=== PATIENT | female | born 1995 | race Caucasian/White ===

== ENCOUNTER 2018-08-07 16:44 | Emergency (ER) | payer SELFPAY | END 2018-08-07 17:01 | disposition left against medical advice (07) | LOC: ED 16:44 | DX: Z72.89 Other problems related to lifestyle (principal) ==

== ENCOUNTER 2022-01-30 19:34 | Emergency (ER) | payer SELFPAY ==
[~2022-01-30] VITALS: Wt 69.5 kg
[2022-01-30 20:03] LABS: BASO # 0.02 K/mm3 (0.02-0.10); EOS # 0.14 K/mm3 (0.04-0.40); EOS % 2.1 % (1.0-5.0); HEMATOCRIT 38.8 % (37.0-47.0); HEMOGLOBIN 13.5 g/dL (12.5-16.0); LYMPH# 3.01 K/mm3 (1.50-4.00); MEAN CELL VOLUME 85 fl (78-100); MEAN CORPUSCULAR HEMOGLOBIN 30 pg (27-31); MEAN CORPUSCULAR HGB CONC 35 g/dL (33-37); MEAN PLATELET VOLUME 9.9 fl (7.4-10.4); MONO # 0.39 K/mm3 (0.20-0.80); NEU # 3.18 K/mm3 (1.40-6.50); PLATELET COUNT 223 K/mm3 (130-400); RED BLOOD COUNT 4.57 M/mm3 (4.10-5.30); RED CELL DISTRIBUTION WIDTH 11.6 % (11.5-14.5); WHITE BLOOD COUNT 6.8 K/mm3 (4.8-10.8)
[2022-01-30 20:10] LABS: URINE APPEARANCE CLEAR; URINE BILIRUBIN NEGATIVE (NEGATIVE); URINE BLOOD TRACE (NEGATIVE); URINE COLOR YELLOW; URINE GLUCOSE NEGATIVE (NEGATIVE); URINE KETONE NEGATIVE (NEGATIVE); URINE LEUKOCYTE ESTERASE TRACE (NEGATIVE); URINE NITRATE NEGATIVE (NEGATIVE); URINE PROTEIN(semi-quant) TRACE (NEGATIVE); URINE UROBILINOGEN NORMAL (NORMAL)
[2022-01-30 20:11] LABS: URINE MUCUS PRESENT (NOT PRESENT)
[2022-01-30 20:14] LABS: ALBUMIN 4.2 g/dL (3.5-5.0); POTASSIUM 3.6 mmol/L (3.5-5.1)
[2022-01-30 20:15] LABS: CALCIUM 9.1 mg/dL (8.3-10.5)
[2022-01-30 20:17] LABS: TOTAL PROTEIN 7.1 g/dL (6.4-8.3)
[2022-01-30 20:18] LABS: TOTAL BILIRUBIN 0.3 mg/dL (0.2-1.2)
[2022-01-30] MEDS ORDERED: SEPTRA DS 8001 TAB PO (21:16)
[2022-01-30 22:07] VITALS: BP 120/74
== END 2022-01-30 22:08 | disposition home or self-care (01) ==
LOC: ED 19:34
PROVIDERS: Family Medicine
DX: N39.0 Urinary tract infection, site not specified (principal); Z28.310 Unvaccinated for COVID-19